=== PATIENT | female | born 1995 | race Caucasian/White ===

== ENCOUNTER 2017-07-14 23:00 | Emergency (ER) | payer SELFPAY ==
[~2017-07-14] VITALS: Ht 152.4 cm; Wt 59.0 kg
[2017-07-15 00:46] VITALS: BP 115/73
== END 2017-07-15 00:46 | disposition home or self-care (01) ==
LOC: ED 23:00
DX: N39.0 Urinary tract infection, site not specified (principal); Z88.8 Allergy status to other drugs, medicaments and biological substances